=== PATIENT | male | born 1995 | race Caucasian/White ===

== ENCOUNTER 2018-11-04 10:16 | Emergency (ER) | payer BC, OTHER ==
[~2018-11-04] VITALS: Ht 180.3 cm; Wt 83.9 kg
[2018-11-04 10:26] VITALS: BP 121/65
[2018-11-04] MEDS ORDERED: BACI/NEOM/POLY B OINT PKT 1 UDPKT PACKET TP ONE (11:00)
== END 2018-11-04 10:54 | disposition home or self-care (01) ==
LOC: ER 10:21
DX: S61.213D Laceration without foreign body of left middle finger without damage to nail, subsequent encounter (principal); J45.909 Unspecified asthma, uncomplicated; W26.0XXD Contact with knife, subsequent encounter
CPT/HCPCS: 99283; A4606

== ENCOUNTER 2023-08-01 18:27 | Emergency (ER) | payer OTHER ==
[~2023-08-01] VITALS: Ht 167.6 cm; Wt 76.2 kg
[2023-08-01] MEDS ORDERED: SILVER SULFADIAZINE CREAM 25 GM TUBE TP ONE (19:30)
[2023-08-01] MEDS ORDERED: HYDROCODONE/APAP 5/325MG TABLET PO ONE (19:30)
[2023-08-01] MEDS ORDERED: IBUPROFEN 400 MG TABLET PO ONE (19:30)
[2023-08-01] MEDS ORDERED: HYDROCODONE/APAP 5/325MG TABLET ONE (19:31)
[2023-08-01] MEDS ORDERED: IBUPROFEN 400 MG TABLET ONE (19:32)
[2023-08-01] MEDS ORDERED: SILVER SULFADIAZINE CREAM 25 GM TUBE ONE (19:37)
[2023-08-01] MEDS ORDERED: SILV20CR13 TP (19:47)
[2023-08-01] MEDS ORDERED: HYDR-4303 PO (19:47)
[2023-08-01] MEDS ORDERED: IBUP-1955 PO (19:47)
[2023-08-01] MEDS ORDERED: ONDANSETRON 4 MG TAB.RAPDIS ONE (20:23)
[2023-08-01] MEDS ORDERED: ONDANSETRON HCL 4 MG/5 ML SOLUTION PO ONE (20:30)
[2023-08-01 20:32] VITALS: BP 128/75; TEMP 98; O2SAT 99
== END 2023-08-01 20:32 | disposition home or self-care (01) ==
LOC: ER 18:36
DX: T21.12XA Burn of first degree of abdominal wall, initial encounter (principal); T21.22XA Burn of second degree of abdominal wall, initial encounter; X12.XXXA Contact with other hot fluids, initial encounter; Y93.89 Activity, other specified; Y92.89 Other specified places as the place of occurrence of the external cause; Y99.8 Other external cause status
CPT/HCPCS: 99284; 16020; Q0162